=== PATIENT | female | born 1965 | race Caucasian/White ===

== ENCOUNTER 2017-03-10 13:46 | Emergency (ER) | payer BC ==
[~2017-03-10] VITALS: Ht 156.2 cm; Wt 63.2 kg
[2017-03-10 13:54] VITALS: BP 125/78; PULSE 124; RESP 12; TEMP 98.6; O2SAT 92
[2017-03-10] MEDS ORDERED: PLAV75TA29 PO (14:24)
[2017-03-10] MEDS ORDERED: GEOD60CA PO (14:24)
[2017-03-10] MEDS ORDERED: SIMV20TA PO (14:24)
[2017-03-10] MEDS ORDERED: XANA2TAB2 PO (14:24)
[2017-03-10] MEDS ORDERED: LEVO125T4 PO (14:24)
[2017-03-10] MEDS ORDERED: ADDE30XR PO (14:24)
[2017-03-10] MEDS ORDERED: ASPI81CH CHEW (14:24)
[2017-03-10] MEDS ORDERED: DICYCLOMINE HCL 10 MG CAP PO ONE (14:45)
[2017-03-10] MEDS ORDERED: SODIUM CHLOR 0.9% 1000 ML INJ 1,000 ML IV ONE (14:45)
--- NOTE | 2017-03-10 14:46 | PD ---
HPI Chief Complaint: Abdominal Pain Time Seen by Provider: 14:21 Travel History International Travel<30 days: No Contact w/Intl Traveler<30days: No Traveled to known affect area: No History of Present Illness HPI This 51-year-old female says having some crampy abdominal pain. She points to multiple areas on her abdomen when asked to show right-sided pain. His been no vomiting or diarrhea area and she is not aware of any fever. She does have frequent UTIs. She thought she was having a UTI yesterday and took some Azo which seemed to help a little bit. She has a history of 3 cardiac stents in 2011. sHe has Christina's disease. She has anxiety and ADHD. She takes fentanyl patch for back and neck pain. She has had 3 C-sections and a tubal ligation. PFSH Past Medical History Hx Anticoagulant Therapy: Yes (asa) ADHD: Yes Bipolar Disorder: Yes Anxiety: Yes Depression: Yes Cardiovascular Problems: Yes Myocardial Infarction: Yes Thyroid Disease: Yes (Christina's disease) Tetanus Vaccination: < 5 Years Influenza Vaccination: No ?: Not LMP: "one week ago" Tubal Ligation: Yes Past Surgical History Section: Yes (x3) Coronary Stent: Yes Social History Alcohol Use: No Tobacco Use: Yes (1ppd) Substance Use: No Allergies-Medications (Allergen,Severity, Reaction): Coded Allergies: ampicillin (Unverified Allergy, Intermediate, Rash, 03/10/17) Reported Meds & Prescriptions Reported Meds & Active Scripts Active Reported Plavix (Clopidogrel Bisulfate) 75 Mg Tab 75 Mg PO DAILY Simvastatin 20 Mg Tab 20 Mg PO HS Aspirin 81 Mg Chew 81 Mg CHEW DAILY Xanax (Alprazolam) 2 Mg Tab 2 Mg PO Q8H PRN Adderall Xr 24 HR (Amphetamine/Dextroamphetamine) 30 Mg Cap 30 Mg PO DAILY Once daily in the morning. Levothyroxine (Levothyroxine Sodium) 125 Mcg Tab 125 Mcg PO DAILY Geodon (Ziprasidone) 60 Mg Cap 60 Mg PO HS Review of Systems General / Constitutional: No: Fever, Chills Eyes: No: Diploplia, Blurred Vision HENT: No: Headaches Cardiovascular: No: Chest Pain or Discomfort, Palpitations Respiratory: No: Cough, Shortness of Breath Gastrointestinal: Positive: Abdominal Pain, No: Vomiting, Diarrhea, Hematochezia Genitourinary: Positive: Dysuria, No: Urgency Musculoskeletal: No: Myalgias Skin: No Rash, No Itching Neurologic: No: Weakness, Dizziness Hematologic/Lymphatic: No: Easy Bruising Physical Exam Narrative GENERAL: Well-developed female SKIN: Focused skin assessment warm/dry. HEAD: Atraumatic. Normocephalic. EYES: Pupils equal and round. No scleral icterus. No injection or drainage. ENT: No nasal bleeding or discharge. Mucous membranes pink and moist. NECK: Trachea midline. No JVD. CARDIOVASCULAR: Regular rate and rhythm. No murmur appreciated. RESPIRATORY: No accessory muscle use. Clear to auscultation. Breath sounds equal bilaterally. GASTROINTESTINAL: Abdomen soft, non-tender, nondistended. Hepatic and splenic margins not palpable. MUSCULOSKELETAL: No obvious deformities. No clubbing. No cyanosis. No edema. NEUROLOGICAL: Awake and alert. No obvious cranial nerve deficits. Motor grossly within normal limits. Normal speech. PSYCHIATRIC: Appropriate mood and affect; insight and judgment normal. Data Data Last Documented VS Vital Signs Date Time Temp Pulse Resp B/P (MAP) Pulse Ox O2 Delivery O2 Flow Rate FiO2 03/10/17 15:04 110 20 116/70 (85) 95 03/10/17 13:54 98.6 Room Air Orders Orders Complete Blood Count With Diff (03/10/17 14:38) Comprehensive Metabolic Panel (03/10/17 14:38) Lipase (03/10/17 14:38) Urinalysis - C+S If Indicated (03/10/17 14:38) Dicyclomine (Bentyl) (03/10/17 14:45) Sodium Chlor 0.9% 1000 Ml Inj (Ns 1000 M (03/10/17 14:45) Urine Culture (03/10/17 15:00) Ct Abd/Pel W Iv Contrast(Rout) (03/10/17 15:31) Labs Laboratory Tests Test 03/10/17 15:00 White Blood Count 16.3 TH/MM3 Red Blood Count 4.66 MIL/MM3 Hemoglobin 12.2 GM/DL Hematocrit 37.5 % Mean Corpuscular Volume 80.7 FL Mean Corpuscular Hemoglobin 26.2 PG Mean Corpuscular Hemoglobin Concent 32.5 % Red Cell Distribution Width 14.3 % Platelet Count 220 TH/MM3 Mean Platelet Volume 8.9 FL Neutrophils (%) (Auto) 83.8 % Lymphocytes (%) (Auto) 8.7 % Monocytes (%) (Auto) 6.5 % Eosinophils (%) (Auto) 0.6 % Basophils (%) (Auto) 0.4 % Neutrophils # (Auto) 13.6 TH/MM3 Lymphocytes # (Auto) 1.4 TH/MM3 Monocytes # (Auto) 1.1 TH/MM3 Eosinophils # (Auto) 0.1 TH/MM3 Basophils # (Auto) 0.1 TH/MM3 CBC Comment DIFF FINAL Differential Comment Urine Collection Type VOIDED Urine Color LAKE Urine Turbidity CLEAR Urine pH 7.5 Urine Specific [place] 1.015 Urine Protein 30 mg/dL Urine Glucose (UA) 100 mg/dL Urine Ketones TRACE mg/dL Urine Occult Blood NEG Urine Nitrite POS Urine Bilirubin NEG Urine Leukocyte Esterase TRACE Urine WBC 3-5 /hpf Urine Squamous Epithelial Cells 3-5 /hpf Microscopic Urinalysis Comment CULTURE INDICATED Blood Urea Nitrogen 5 MG/DL Random Glucose 103 MG/DL Albumin 3.2 GM/DL Calcium Level 7.9 MG/DL Sodium Level 136 MEQ/L Potassium Level 3.4 MEQ/L Chloride Level 102 MEQ/L Carbon Dioxide Level 26.9 MEQ/L Anion Gap 7 MEQ/L Lipase 94 U/L [facility] Medical Decision Making Medical Screen Exam Complete: Yes Emergency Medical Condition: Yes Medical Record Reviewed: Yes Differential Diagnosis Differential includes gastroenteritis, nonspecific abdominal pain, appendicitis Narrative Course Examination is nonspecific and there really is not a focal area of tenderness that she complains of some tenderness in the lower abdomen. Her white count is come back at 16,000. Urine is negative for infection. I have ordered a CT scan to further assess her pain. Disposition to be determined by oncoming physician Diagnosis Primary Impression: Abdominal pain Carloz Weller MD Mar 10, 2017 14:46
[2017-03-10 15:04] VITALS: BP 116/70; PULSE 110; RESP 20; O2SAT 95
[2017-03-10 15:13] LABS: BLOOD, URINE NEG (NEG); GLUCOSE,URINE 100 mg/dL (NEG); KETONE, URINE TRACE mg/dL (NEG); NITRITE,URINE POS (NEG); PH, URINE 7.5 (5.0-8.5)
[2017-03-10 15:19] LABS: METHOD OF COLLECTION VOIDED; URINE COLOR AMBER (YELLW/STRAW)
[2017-03-10 15:22] LABS: COMMENT (UR) CULTURE INDICATED; CULTURE IF INDICATED CULTURE INDICATED
[2017-03-10 15:25] LABS: AUTOMATED NEUTROPHIL # 13.6 TH/MM3 (1.8-7.7); BASOPHIL # 0.1 TH/MM3 (0-0.2); BASOPHIL % 0.4 % (0.0-2.0); EOSINOPHIL # 0.1 TH/MM3 (0-0.4); EOSINOPHIL % 0.6 % (0.0-4.0); HEMATOCRIT 37.5 % (35.0-46.0); HEMO FLAGS DIFF FINAL; LYMPH % 8.7 % (9.0-44.0); LYMPHOCYTE # 1.4 TH/MM3 (1.0-4.8); MEAN CELL VOLUME 80.7 FL (80.0-100.0); MEAN CORPUSCULAR HEMOGLOBIN 26.2 PG (27.0-34.0); MEAN CORPUSCULAR HGB CONC 32.5 % (32.0-36.0); MONO % 6.5 % (0.0-8.0); NEUT % 83.8 % (16.0-70.0); PLATELET COUNT 220 TH/MM3 (150-450); RED BLOOD COUNT 4.66 MIL/MM3 (4.00-5.30); RED CELL DISTRIBUTION WIDTH 14.3 % (11.6-17.2); WHITE BLOOD COUNT 16.3 TH/MM3 (4.0-11.0)
[2017-03-10 15:28] LABS: CHLORIDE 102 MEQ/L (98-107); POTASSIUM 3.4 MEQ/L (3.5-5.1); SODIUM (NA) 136 MEQ/L (136-145)
[2017-03-10 15:32] LABS: ANION GAP 7 MEQ/L (5-15); BICARBONATE 26.9 MEQ/L (21.0-32.0); BLOOD UREA NITROGEN 5 MG/DL (7-18)
[2017-03-10 15:35] LABS: ALT (GPT) 11 U/L (10-53); AST (GOT) 13 U/L (15-37); GLOMERULAR FILTRATION RATE 71 ML/MIN (>89)
[2017-03-10 15:36] LABS: TOTAL BILIRUBIN ADULT 0.5 MG/DL (0.2-1.0)
[2017-03-10 15:38] LABS: ALKALINE PHOSPHATASE 68 U/L (45-117)
[2017-03-10] MEDS ORDERED: IOHEXOL 350 MG/ML 10 ML VIAL (for RAD DIAG) IVCONTRAST ONE (16:05)
--- NOTE | 2017-03-10 16:28 | PD ---
Physical Exam Narrative Patient was seen by ED physician and signed out to me. Data Data Last Documented VS Vital Signs Date Time Temp Pulse Resp B/P (MAP) Pulse Ox O2 Delivery O2 Flow Rate FiO2 03/10/17 16:47 118 20 112/66 (81) 94 03/10/17 13:54 98.6 Room Air Orders Orders Complete Blood Count With Diff (03/10/17 14:38) Comprehensive Metabolic Panel (03/10/17 14:38) Lipase (03/10/17 14:38) Urinalysis - C+S If Indicated (03/10/17 14:38) Dicyclomine (Bentyl) (03/10/17 14:45) Sodium Chlor 0.9% 1000 Ml Inj (Ns 1000 M (03/10/17 14:45) Urine Culture (03/10/17 15:00) Ct Abd/Pel W Iv Contrast(Rout) (03/10/17 15:31) Iohexol 350 Inj (Omnipaque 350 Inj) (03/10/17 16:05) Labs Laboratory Tests Test 03/10/17 15:00 White Blood Count 16.3 TH/MM3 Red Blood Count 4.66 MIL/MM3 Hemoglobin 12.2 GM/DL Hematocrit 37.5 % Mean Corpuscular Volume 80.7 FL Mean Corpuscular Hemoglobin 26.2 PG Mean Corpuscular Hemoglobin Concent 32.5 % Red Cell Distribution Width 14.3 % Platelet Count 220 TH/MM3 Mean Platelet Volume 8.9 FL Neutrophils (%) (Auto) 83.8 % Lymphocytes (%) (Auto) 8.7 % Monocytes (%) (Auto) 6.5 % Eosinophils (%) (Auto) 0.6 % Basophils (%) (Auto) 0.4 % Neutrophils # (Auto) 13.6 TH/MM3 Lymphocytes # (Auto) 1.4 TH/MM3 Monocytes # (Auto) 1.1 TH/MM3 Eosinophils # (Auto) 0.1 TH/MM3 Basophils # (Auto) 0.1 TH/MM3 CBC Comment DIFF FINAL Differential Comment Urine Collection Type VOIDED Urine Color LAKE Urine Turbidity CLEAR Urine pH 7.5 Urine Specific [place] 1.015 Urine Protein 30 mg/dL Urine Glucose (UA) 100 mg/dL Urine Ketones TRACE mg/dL Urine Occult Blood NEG Urine Nitrite POS Urine Bilirubin NEG Urine Leukocyte Esterase TRACE Urine WBC 3-5 /hpf Urine Squamous Epithelial Cells 3-5 /hpf Microscopic Urinalysis Comment CULTURE INDICATED Blood Urea Nitrogen 5 MG/DL Creatinine 0.85 MG/DL Random Glucose 103 MG/DL Total Protein 7.0 GM/DL Albumin 3.2 GM/DL Calcium Level 7.9 MG/DL Alkaline Phosphatase 68 U/L Aspartate Amino Transf (AST/SGOT) 13 U/L Alanine Aminotransferase (ALT/SGPT) 11 U/L Total Bilirubin 0.5 MG/DL Sodium Level 136 MEQ/L Potassium Level 3.4 MEQ/L Chloride Level 102 MEQ/L Carbon Dioxide Level 26.9 MEQ/L Anion Gap 7 MEQ/L Estimat Glomerular Filtration Rate 71 ML/MIN Lipase 94 U/L MDM Supervised Visit with [facility]: No Interpretation(s) 1627 PM. CBC WBC 16.3. 83 neutrophil. Potassium 3.4. Calcium 7.9. UA positive for leukocyte and nitrite. 3-[address] scan abdomen pelvis negative acute pathology. Narrative Course Patient was immediately physician and signed out to me. Diagnosis Primary Impression: Abdominal pain Qualified Codes: R10.10 - Upper abdominal pain, unspecified Additional Impression: Gastritis Qualified Codes: K29.00 - Acute gastritis without bleeding Patient Instructions: General Instructions Additional Instruction: Take medications as directed. Follow-up with GI specialist and primary care physician. Return if persistent problem or worse. Med/Other Pt SpecificInfo: Prescription(s) given Scripts Dicyclomine (Bentyl) 10 Mg Cap 10 MG PO TID Y for Bowel Management, #21 CAP 0 Refills Prov: Julio Mcconnell MD 03/10/17 Sucralfate (Carafate) 1 Gram Tab 1 GM PO QID for Ulcer Prevention, #120 TAB 0 Refills On empty stomach Prov: Julio Mcconnell MD 03/10/17 Pantoprazole (Protonix) 40 Mg Tab 40 MG PO DAILY for Reflux, #30 TAB 0 Refills Prov: Julio Mcconnell MD 03/10/17 Disposition: 01 DISCHARGE HOME Condition: Stable Julio Mcconnell MD Mar 10, 2017 16:28
[2017-03-10 16:47] VITALS: BP 112/66; PULSE 118; RESP 20; O2SAT 94
--- NOTE | 2017-03-10 16:50 | RADRPT ---
EXAM DATE/TIME: 03/10/2017 16:00 [facility] COMPARISON: No previous studies available for comparison. INDICATIONS : Lower abdominal pain and distention. IV CONTRAST: 85 cc Omnipaque 350 (iohexol) IV ORAL CONTRAST: No oral contrast ingested. RADIATION DOSE: 8.41 CTDIvol (mGy) MEDICAL HISTORY : Cardiovascular disease. Christina's disease. SURGICAL HISTORY : Tubal ligation. section.Cardiac stent. ENCOUNTER: Initial ACUITY: 1 day PAIN SCALE: 10/10 LOCATION: Bilateral lower quadrant TECHNIQUE: Volumetric scanning of the abdomen and pelvis was performed. Using automated exposure control and ad justment of the mA and/or kV according to patient size, radiation dose was kept as low as reasonably achievable to obtain optimal diagnostic quality images. DICOM format image data is available electro nically for review and comparison. FINDINGS: CT Abdomen: The liver, spleen, pancreas, kidneys, adrenals are unremarkable. There is no evidence for any appreciable pathological adenopathy, free fluid, or bowel obstruction. There are shotty subcent imeter retroperitoneal lymph nodes benign in appearance. CT pelvis: There is no evidence for mass, abscess formation, or any significant adenopathy within the pelvis. CONCLUSION: Essentially unremarkable study. Tal Grijalva MD on March 10, 2017 at 16:45 Board Certified Radiologist. This report was verified electronically.
[2017-03-10] MEDS ORDERED: CARA1TAB6 PO (17:04)
[2017-03-10] MEDS ORDERED: DICY10 PO (17:04)
[2017-03-10] MEDS ORDERED: PROT40TA PO (17:04)
== END 2017-03-10 17:38 | disposition home or self-care (01) ==
LOC: PHED 13:46
DX: R10.10 Upper abdominal pain, unspecified (principal); K29.00 Acute gastritis without bleeding; B96.20 Unspecified Escherichia coli [E. coli] as the cause of diseases classified elsewhere; E06.3 Autoimmune thyroiditis; F17.210 Nicotine dependence, cigarettes, uncomplicated; Z88.0 Allergy status to penicillin; Z95.5 Presence of coronary angioplasty implant and graft
CPT/HCPCS: 74177; 80053; 81001; 83690; 85025; 87077; 87086; 87186; 96360; 96361; 99285; J7030; Q9967

== ENCOUNTER 2017-04-12 16:55 | Emergency (ER) | payer BC ==
[~2017-04-12] VITALS: Ht 154.9 cm; Wt 65.7 kg
[~2017-04-12 16:55] MED LIST: ADDE30XR PO; ASPI81CH CHEW; CARA1TAB6 PO; DICY10 PO; GEOD60CA PO; LEVO125T4 PO; PLAV75TA29 PO; PROT40TA PO; SIMV20TA PO; XANA2TAB2 PO
[2017-04-12 17:40] VITALS: BP 130/85; PULSE 97; RESP 18; TEMP 98.5; O2SAT 97
[2017-04-12 17:45] VITALS: BP_SYST 106; BP_SYST 114; BP_DIAS 67; BP_DIAS 74; PULSE 91; RESP 16; O2SAT 97
[2017-04-12] MEDS ORDERED: SODIUM CHLORIDE 0.9% FLUSH 10 ML FLUSH IVF PRN (17:45)
[2017-04-12] MEDS ORDERED: NITROGLYCERIN 2% OINT 1 GM PACKET TOP ONE (17:45)
--- NOTE | 2017-04-12 18:01 | RADRPT ---
EXAM DATE/TIME: 04/12/2017 17:46 [facility] COMPARISON: CHEST SINGLE AP, September 01, 2014, 17:22. INDICATIONS : Chest pain. MEDICAL HISTORY : Cardiovascular disease. Christina's disease. SURGICAL HISTORY : Tubal ligation. Cardiac stents. ENCOUNTER: Initial ACUITY: 1 day PAIN SCORE: 6/10 LOCATION: Bilateral chest FINDINGS: A single view of the chest demonstrates the lungs to be symmetrically aerated without evidence of mas s, infiltrate or effusion. The cardiomediastinal contours are unremarkable. Osseous structures are intact. CONCLUSION: No acute disease. No significant change has occurred. Omar Delarosa MD on April 12, 2017 at 17:59 Board Certified Radiologist. This report was verified electronically.
[2017-04-12 18:21] VITALS: BP 119/80; PULSE 89; RESP 17; O2SAT 97
--- NOTE | 2017-04-12 18:25 | PD ---
HPI Chief Complaint: Chest Pain Time Seen by Provider: 17:20 Travel History International Travel<30 days: No Contact w/Intl Traveler<30days: No Traveled to known affect area: No History of Present Illness HPI So 51 year-old woman presents to the emergency department complaining of chest pain. She states that she is a history of CAD with several stents in 2011. She really hasn't had heart problems since then. 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. She states she felt well until yesterday she had a little bit of intermittent chest pain within the much of it. Today she developed "bad bad chest pain". States it radiated to her neck and her left arm. It was worsened by lying flat initially, but now there is no clear aggravating or alleviating factors. Not clearly exertional. It was intermittent and relieved with nitroglycerin when EMS initially arrived. They laughed and she developed recurrent chest pain afterwards. It subsided some now and she has intermittent chest pain overall is more mild than she had earlier in the day. No other associated symptoms. No other complaints. History Past Medical History Narrative Medical Anxiety/ADHD/bipolar disorder Hypothyroidism Hyperlipidemia CAD, stents in 2011 Tetanus Vaccination: > 5 Years Influenza Vaccination: No Social History Alcohol Use: No Tobacco Use: Yes (1ppd) Allergies-Medications (Allergen,Severity, Reaction): Coded Allergies: ampicillin (Unverified Allergy, Intermediate, Rash, 04/12/17) Reported Meds & Prescriptions Reported Meds & Active Scripts Active Bentyl (Dicyclomine HCl) 10 Mg Cap 10 Mg PO TID PRN Carafate (Sucralfate) 1 Gram Tab 1 Gm PO QID On empty stomach Protonix (Pantoprazole Sodium) 40 Mg Tab 40 Mg PO DAILY Reported Plavix (Clopidogrel Bisulfate) 75 Mg Tab 75 Mg PO DAILY Simvastatin 20 Mg Tab 20 Mg PO HS Aspirin 81 Mg Chew 81 Mg CHEW DAILY Xanax (Alprazolam) 2 Mg Tab 2 Mg PO Q8H PRN Adderall Xr 24 HR (Amphetamine/Dextroamphetamine) 30 Mg Cap 30 Mg PO DAILY Once daily in the morning. Levothyroxine (Levothyroxine Sodium) 125 Mcg Tab 125 Mcg PO DAILY Geodon (Ziprasidone) 60 Mg Cap 60 Mg PO HS Review of Systems Except as stated in HPI: all other systems reviewed are Neg Physical Exam Narrative GENERAL: Well-appearing 51 year-old woman, no acute distress. SKIN: Focused skin assessment warm/dry. HEAD: Atraumatic. Normocephalic. NECK: Trachea midline. No JVD. CARDIOVASCULAR: Regular rate and rhythm. No murmur appreciated. Symmetric equal pulses bilateral upper extremities. RESPIRATORY: No accessory muscle use. Clear to auscultation. Breath sounds equal bilaterally. GASTROINTESTINAL: Abdomen soft, non-tender, nondistended. Hepatic and splenic margins not palpable. MUSCULOSKELETAL: No obvious deformities. No clubbing. No cyanosis. No edema. NEUROLOGICAL: Awake and alert. No obvious cranial nerve deficits. Motor grossly within normal limits. Normal speech. PSYCHIATRIC: Appropriate mood and affect; insight and judgment normal. Data Data Last Documented VS Vital Signs Date Time Temp Pulse Resp B/P (MAP) Pulse Ox O2 Delivery O2 Flow Rate FiO2 04/12/17 18:43 82 17 106/72 (83) 97 Room Air 04/12/17 17:40 98.5 Orders Orders Electrocardiogram (04/12/17:40) Complete Blood Count With Diff (04/12/17:40) Comprehensive Metabolic Panel (04/12/17 17:40) Magnesium (Mg) (04/12/17:40) Prothrombin Time / Inr (Pt) (04/12/17:40) Act Partial Throm Time (Ptt) (04/12/17 17:40) Troponin I (04/12/17 17:40) Lipase (04/12/17 17:40) Chest, Single Ap (04/12/17:40) Ecg Monitoring (04/12/17:40) Bilateral Bp Monitoring (04/12/17:40) Iv Access Insert/Monitor (04/12/17:40) Oximetry (04/12/17 17:40) Oxygen Administration (04/12/17:40) Nitroglycerin 2% Oint (Nitroglycerin 2% (04/12/17 17:45) Sodium Chloride 0.9% Flush (Ns Flush) (04/12/17 17:45) Nitroglycerin Sl (Nitrostat Sl) (04/12/17 18:30) Sodium Chlorid 0.9% 500 Ml Inj (Ns 500 M (04/12/17 18:30) Acetaminophen (Tylenol) (04/12/17 19:30) Admit Order (Ed Use Only) (04/12/17 ) Labs Laboratory Tests Test 04/12/17 17:50 White Blood Count 9.0 TH/MM3 Red Blood Count 4.31 MIL/MM3 Hemoglobin 11.4 GM/DL Hematocrit 34.8 % Mean Corpuscular Volume 80.7 FL Mean Corpuscular Hemoglobin 26.4 PG Mean Corpuscular Hemoglobin Concent 32.7 % Red Cell Distribution Width 15.5 % Platelet Count 274 TH/MM3 Mean Platelet Volume 9.2 FL Neutrophils (%) (Auto) 65.3 % Lymphocytes (%) (Auto) 24.7 % Monocytes (%) (Auto) 4.8 % Eosinophils (%) (Auto) 4.6 % Basophils (%) (Auto) 0.6 % Neutrophils # (Auto) 5.9 TH/MM3 Lymphocytes # (Auto) 2.2 TH/MM3 Monocytes # (Auto) 0.4 TH/MM3 Eosinophils # (Auto) 0.4 TH/MM3 Basophils # (Auto) 0.1 TH/MM3 CBC Comment DIFF FINAL Differential Comment Prothrombin Time 10.1 SEC Prothromb Time International Ratio 0.9 RATIO Activated Partial Thromboplast Time 26.1 SEC Blood Urea Nitrogen 7 MG/DL Creatinine 0.74 MG/DL Random Glucose 88 MG/DL Total Protein 7.1 GM/DL Albumin 3.4 GM/DL Calcium Level 8.3 MG/DL Magnesium Level 1.8 MG/DL Alkaline Phosphatase 60 U/L Aspartate Amino Transf (AST/SGOT) 16 U/L Alanine Aminotransferase (ALT/SGPT) 14 U/L Total Bilirubin 0.2 MG/DL Sodium Level 139 MEQ/L Potassium Level 3.7 MEQ/L Chloride Level 105 MEQ/L Carbon Dioxide Level 27.2 MEQ/L Anion Gap 7 MEQ/L Estimat Glomerular Filtration Rate 83 ML/MIN Troponin I LESS THAN 0.02 NG/ML Lipase 152 U/L MDM Medical Decision Making Medical Screen Exam Complete: Yes Emergency Medical Condition: Yes Interpretation(s) My review of EKG: Normal sinus rhythm at a rate of 86, incomplete right bundle branch block, and septal Q waves, no definite evidence of acute ischemia. LABS: CBC remarkable for mild anemia. CMP is unremarkable. Troponins negative. Lipase is normal. Coags are unremarkable. Chest x-ray: No acute disease. No significant change. Differential Diagnosis Musculoskeletal pain, costochondritis, ACS, anxiety, pericarditis, dissection, PE, other Narrative Course Medical decision-making . 51 year-old woman who presents to the emergency department with chest pain. Some concerning features including radiation to the neck and arm. She is a history of CAD. She looks overall well. EKG is nondiagnostic. Given her risk factors, we'll plan on chest pain Center for further evaluation for ACS. PE and dissection considered. Recommend no further evaluation at this point. Diagnosis Primary Impression: Chest pain Admitting Information Admitting Physician Requests: Observation Tony Grigsby MD Apr 12, 2017 18:25
[2017-04-12] MEDS ORDERED: SODIUM CHLORID 0.9% 500 ML INJ 500 ML IV ONE (18:30)
[2017-04-12] MEDS ORDERED: NITROGLYCERIN 0.4 MG SL 25 TABS/BTL SL ONE (18:30)
[2017-04-12 18:35] LABS: AUTOMATED NEUTROPHIL # 5.9 TH/MM3 (1.8-7.7); BASOPHIL # 0.1 TH/MM3 (0-0.2); BASOPHIL % 0.6 % (0.0-2.0); EOSINOPHIL # 0.4 TH/MM3 (0-0.4); EOSINOPHIL % 4.6 % (0.0-4.0); HEMATOCRIT 34.8 % (35.0-46.0); HEMO FLAGS DIFF FINAL; LYMPH % 24.7 % (9.0-44.0); LYMPHOCYTE # 2.2 TH/MM3 (1.0-4.8); MEAN CELL VOLUME 80.7 FL (80.0-100.0); MEAN CORPUSCULAR HEMOGLOBIN 26.4 PG (27.0-34.0); MEAN CORPUSCULAR HGB CONC 32.7 % (32.0-36.0); MONO % 4.8 % (0.0-8.0); NEUT % 65.3 % (16.0-70.0); PLATELET COUNT 274 TH/MM3 (150-450); RED BLOOD COUNT 4.31 MIL/MM3 (4.00-5.30); RED CELL DISTRIBUTION WIDTH 15.5 % (11.6-17.2)
[2017-04-12 18:37] LABS: CHLORIDE 105 MEQ/L (98-107); POTASSIUM 3.7 MEQ/L (3.5-5.1); SODIUM (NA) 139 MEQ/L (136-145)
[2017-04-12 18:41] LABS: ANION GAP 7 MEQ/L (5-15); BICARBONATE 27.2 MEQ/L (21.0-32.0); BLOOD UREA NITROGEN 7 MG/DL (7-18); MAGNESIUM 1.8 MG/DL (1.5-2.5)
[2017-04-12 18:42] LABS: APTT (PATIENT) 26.1 SEC (24.3-30.1); INTERNATIONAL NORMALIZED RATIO 0.9 RATIO; PROTHROMBIN TIME - PATIENT 10.1 SEC (9.8-11.6)
[2017-04-12 18:43] VITALS: BP 106/72; PULSE 82; RESP 17; O2SAT 97
[2017-04-12 18:43] LABS: ALT (GPT) 14 U/L (10-53); AST (GOT) 16 U/L (15-37)
[2017-04-12 18:44] LABS: GLOMERULAR FILTRATION RATE 83 ML/MIN (>89)
[2017-04-12 18:45] LABS: TOTAL BILIRUBIN ADULT 0.2 MG/DL (0.2-1.0)
[2017-04-12 18:46] LABS: ALKALINE PHOSPHATASE 60 U/L (45-117)
[2017-04-12] MEDS ORDERED: ACETAMINOPHEN 500 MG CPLT PO ONE (19:30)
[2017-04-12] MEDS ORDERED: FENT50DI T-DERMAL (20:21)
[2017-04-12] MEDS ORDERED: SODIUM CHLORIDE 0.9% FLUSH 10 ML FLUSH IV FLUSH PRN (20:30)
[2017-04-12 20:42] VITALS: BP 119/85
[2017-04-12 20:50] VITALS: BP 110/75; PULSE 82; RESP 18; O2SAT 99
[2017-04-12] MEDS ORDERED: SODIUM CHLORIDE 0.9% FLUSH 10 ML FLUSH IV FLUSH SCH (21:00)
--- NOTE | 2017-04-13 12:16 | EKG ---
Date Performed: 04/12/2017 Time Performed: 17:49:34 PTAGE: 51 years EKG: Sinus rhythm INCOMPLETE RIGHT BUNDLE BRANCH BLOCK SEPTAL MYOCARDIAL INFARCTION ABNORMAL ECG Compared to prior tra cing no significant change PREVIOUS TRACING : 09/01/2014 16.47 DOCTOR: Sue Ramirez Interpretating Date/Time 04/13/2017 12:13:42
== END 2017-04-12 20:40 | disposition left against medical advice (07) ==
LOC: PHED 16:55 → UNDOADMOB 19:24 → PHEDA 19:24
DX: R07.9 Chest pain, unspecified (principal); I45.19 Other right bundle-branch block; I25.10 Atherosclerotic heart disease of native coronary artery without angina pectoris; E03.9 Hypothyroidism, unspecified; E78.5 Hyperlipidemia, unspecified; F17.210 Nicotine dependence, cigarettes, uncomplicated
CPT/HCPCS: 71010; 80053; 83690; 83735; 84484; 85025; 85610; 85730; 93005; 96360; 99285; J7040